=== PATIENT | female | born 1975 | race Caucasian/White ===

== ENCOUNTER 2021-06-22 09:10 | Emergency (ER) | payer OTHER, SELFPAY ==
[2021-06-22] VITALS (8 sets, daily range): BP systolic 114–155; BP diastolic 60–86; PULSE 71–85; RESP 18–20; TEMP 36.9; O2SAT 98–100; BMI 23.6
[2021-06-22 09:48] LABS: Appearance Urine UA SL CLOUDY; Bilirubin Urine UA NEGATIVE (NEGATIVE); Color Urine UA YELLOW; Glucose Urine UA NEGATIVE (Negative); Ketones Urine UA NEGATIVE (NEGATIVE); Leukocyte Esterase Urine UA NEGATIVE (NEGATIVE); Nitrite Urine UA NEGATIVE (Negative); Occult Blood Urine UA 3+ (Negative); Protein Urine UA NEGATIVE (Negative); Specific Gravity Urine UA 1.015 (1.000-1.035); Urobilinogen Urine UA 0.2 E.U./dL (0.2)
--- NOTE | 2021-06-22 09:56 | ED_ITS ---
HPI - Female Genitourinary General Chief complaint: Vaginal Bleeding Stated complaint: Heavy period x13 days got lightheaded Time Seen by Provider: 06/22/21 09:49 Source: patient Mode of arrival: Ambulatory Limitations: no limitations History of Present Illness HPI Narrative: Patient here with boyfriend. Complains of painless vaginal bleeding for the past 13 days. Has had blood clots. No abdominal pain pelvic pain. Past 2 days has had intermittent lightheadedness. No syncope. She did have nausea a couple months ago that resolved. LMP 2 months ago. Took home test and negative. Last 6 years ago. Is not on any blood thinners. No new medications. No new stressors in life. No family history of uterine or ovarian cancer. Related Data Previous Rx's Medication Instructions Recorded medroxyprogesterone 10 mg tablet 10 mg PO DAILY #14 tab 06/22/21 (Provera) naproxen 500 mg tablet 500 mg PO BID #20 tab 06/22/21 Allergies Allergy/AdvReac Type Severity Reaction Status Date / Time No Known Drug Allergies Allergy Unverified 01/18/21 11:06 Review of Systems Review of Systems Narrative: GENERAL: Denies chills, fatigue, malaise, fever, sweats. HEENT: Denies sinus pain, ear pain, sore throat RESPIRATORY: Denies dyspnea, cough CARDIOVASCULAR: Denies chest pain, palpitations GASTROINTESTINAL: Denies nausea, vomiting, abdominal pain : Denies dysuria, frequency, hematuria, positive vaginal bleeding MUSCULOSKELETAL: denies muscle or bony pain SKIN: Denies rash, skin lesions NEUROLOGIC: Denies weakness, numbness, positive lightheaded ROS Unobtainable: All systems reviewed & are unremarkable except as noted in HPI and below Patient History Medical History No significant past medical history Surgical History No pertinent past surgical history Substance Use Type: does not use Exam Narrative Exam Narrative: GENERAL: in no distress, not toxic not dyspneic HEAD: Normocephalic. EYES: Pupils equal round No scleral icterus. [place] conjunctivae CARDIOVASCULAR: Regular rate and rhythm without murmurs RESPIRATORY: Clear to auscultation. Breath sounds equal bilaterally. No wheezes, rales, or rhonchi. 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 Normal external exam. Small amount of dark blood in vaginal vault. No adnexal tenderness or uterine tenderness BACK: No flank tenderness. NEURO: AOx4. SKIN: Warm and dry PSYCH: Not anxious, is cooperative Initial Vital Signs Initial Vital Signs: Vital Signs Pulse Rate 83 06/22/21 09:22 Pulse Oximetry 100 06/22/21 09:22 Course Course Course Narrative: No new issues during course of stay. Orders Ordered: ED Orders 06/22/21 09:42 Urinalysis and Microscopic Stat 06/22/21 09:45 CBC Auto Diff [Complete Blood Count AUTO DIFF] Stat CMP [Comprehensive Metabolic Panel] Stat 06/22/21 09:49 Test Urine Stat Reevaluation(s) Reevaluation #1: Reviewed results with patient and boyfriend. Agree with follow-up with OBGYN. Return precautions reviewed with him. Time: 10:34 Consultations Consultation #1: Spoke with last remodeler repairer, Dr. Watkins, start Provera 10 mg daily for 2 weeks. She will see patient in the office. Office will contact patient Time: 10:38 Vital Signs Vital signs: Vital Signs - 8 hr 06/22/21 09:22 06/22/21 09:23 06/22/21 09:24 Temperature 98.4 F Pulse Rate 83 85 82 Pulse Rate [Orthostatic Lying] Pulse Rate [Orthostatic Sitting] Pulse Rate [Orthostatic Standing] Respiratory Rate 18 Blood Pressure 155/68 H 155/68 H Blood Pressure [Orthostatic Lying] Blood Pressure [Orthostatic Sitting] Blood Pressure [Orthostatic Standing] Pulse Oximetry 100 99 99 06/22/21 09:30 06/22/21 09:35 06/22/21 09:38 Temperature Pulse Rate 74 79 Pulse Rate [Orthostatic Lying] 75 Pulse Rate [Orthostatic Sitting] 71 Pulse Rate [Orthostatic Standing] 74 Respiratory Rate Blood Pressure 116/61 116/60 Blood Pressure [Orthostatic Lying] 155/68 H Blood Pressure [Orthostatic Sitting] 136/61 Blood Pressure [Orthostatic Standing] 116/60 Pulse Oximetry 98 98 06/22/21 10:00 06/22/21 10:48 Temperature Pulse Rate 74 72 Pulse Rate [Orthostatic Lying] Pulse Rate [Orthostatic Sitting] Pulse Rate [Orthostatic Standing] Respiratory Rate 20 Blood Pressure 114/60 125/86 Blood Pressure [Orthostatic Lying] Blood Pressure [Orthostatic Sitting] Blood Pressure [Orthostatic Standing] Pulse Oximetry 98 99 MDM - Female Genitourinary Differential Diagnosis Differential diagnosis: Likely dysmenorrhea and other (Dysfunctional uterine bleeding) Lab Data Result diagrams: 06/22/21 09:45 06/22/21 09:45 Labs: Lab Results 06/22/21 06/22/21 06/22/21 Range/Units 09:42 09:45 09:45 WBC 4.7 (4.5-11.0) X10^3/uL RBC 3.73 L (4.0-5.2) X10^6/uL Hgb 11.3 L (12.0-16.0) g/dL Hct 33.1 L (36-46) % MCV 88.6 (80-100) fL MCH 30.4 (26-34) PG MCHC 34.3 (30-36) % RDW 13.9 (11.6-14.8) % Plt Count 246 (150-400) X10^3/uL Neut % (Auto) 57.6 (50-75) % Lymph % (Auto) 34.4 (25-40) % [place] % (Auto) 6.0 (3-14) % Eos % (Auto) 1.2 L (2-4) % Baso % (Auto) 0.8 (0-2) % Neut # (Auto) 2700 (3863-5464) /uL Lymph # (Auto) 1600 (2488-6142) /uL [place] # (Auto) 300 (0-900) /uL Eos # (Auto) 100 (0-450) /uL Baso # (Auto) 0 (0-100) /uL Sodium 138 (137-145) mmol/L Potassium 3.9 (3.4-5.1) mmol/L Chloride 106 (98-107) mmol/L Carbon Dioxide 25 (22-32) mmol/L BUN 15 (7-17) mg/dL Creatinine 0.73 (0.52-1.04) mg/dL Estimated GFR > 60.0 (>60) mL/min BUN/Creatinine Ratio 20.5 (6-22) Glucose 95 (70-100) mg/dL Calcium 9.8 (8.4-10.2) mg/dL Total Bilirubin 0.3 (0.2-1.3) mg/dL AST 33 (14-36) IU/L ALT 34 (<35) IU/L Alkaline Phosphatase 57 (38-126) U/L Total Protein 7.2 (6.3-8.2) g/dL Albumin 4.6 (3.5-5.0) g/dL Globulin 2.6 (1.7-4.1) g/dL Albumin/Globulin Ratio 1.8 (1.0-2.8) Urine Color Yellow Urine Appearance Sl cloudy Urine pH 5.5 (4.5-8.0) Ur Specific Rew 1.015 (1.000-1.035) Urine Protein Negative (Negative) Urine Glucose (UA) Negative (Negative) g/dL Urine Ketones Negative (NEGATIVE) Urine Occult Blood 3+ H (Negative) Urine Nitrate Negative (Negative) Urine Bilirubin Negative (NEGATIVE) Urine Urobilinogen 0.2 (0.2) E.U./dL Ur Leukocyte Esterase Negative (NEGATIVE) Urine RBC >100/hpf H (0-5/HPF) Urine WBC 1-5/hpf (0-5/HPF) Ur Squamous Epith Cells 1-5 /hpf (0-5/HPF) Urine Bacteria Few (2-10) H (None) Ur Culture Indicated? Cult not indicated Urine Test (Negative) 06/22/21 Range/Units 09:49 WBC (4.5-11.0) X10^3/uL RBC (4.0-5.2) X10^6/uL Hgb (12.0-16.0) g/dL Hct (36-46) % MCV (80-100) fL MCH (26-34) PG MCHC (30-36) % RDW (11.6-14.8) % Plt Count (150-400) X10^3/uL Neut % (Auto) (50-75) % Lymph % (Auto) (25-40) % [place] % (Auto) (3-14) % Eos % (Auto) (2-4) % Baso % (Auto) (0-2) % Neut # (Auto) (1861-0573) /uL Lymph # (Auto) (7940-0097) /uL [place] # (Auto) (0-900) /uL Eos # (Auto) (0-450) /uL Baso # (Auto) (0-100) /uL Sodium (137-145) mmol/L Potassium (3.4-5.1) mmol/L Chloride (98-107) mmol/L Carbon Dioxide (22-32) mmol/L BUN (7-17) mg/dL Creatinine (0.52-1.04) mg/dL Estimated GFR (>60) mL/min BUN/Creatinine Ratio (6-22) Glucose (70-100) mg/dL Calcium (8.4-10.2) mg/dL Total Bilirubin (0.2-1.3) mg/dL AST (14-36) IU/L ALT (<35) IU/L Alkaline Phosphatase (38-126) U/L Total Protein (6.3-8.2) g/dL Albumin (3.5-5.0) g/dL Globulin (1.7-4.1) g/dL Albumin/Globulin Ratio (1.0-2.8) Urine Color Urine Appearance Urine pH (4.5-8.0) Ur Specific Rew (1.000-1.035) Urine Protein (Negative) Urine Glucose (UA) (Negative) g/dL Urine Ketones (NEGATIVE) Urine Occult Blood (Negative) Urine Nitrate (Negative) Urine Bilirubin (NEGATIVE) Urine Urobilinogen (0.2) E.U./dL Ur Leukocyte Esterase (NEGATIVE) Urine RBC (0-5/HPF) Urine WBC (0-5/HPF) Ur Squamous Epith Cells (0-5/HPF) Urine Bacteria (None) Ur Culture Indicated? Urine Test Negative (Negative) MDM Narrative Medical decision making narrative: Upper for discharge home. Patient not toxic. No hypotension or tachycardia. Return precautions reviewed with her. No imaging indicated this time. Discharge Plan Departure Patient Disposition: Home Clinical Impression: Dysfunctional uterine bleeding Instructions: DI for Abnormal Uterine Bleeding Activity Restrictions/Additional Instructions: Call provided OBGYN office, Dr. Watkins today to arrange office appointment. Call provided primary care referral line to obtain family doctor for continuation of your migraine medications. Return if worsening questions or concerns. Return if any dizziness or passing out. Prescriptions: New medroxyprogesterone [Provera] 10 mg tablet 10 mg PO DAILY Qty: 14 0RF naproxen 500 mg tablet 500 mg PO BID Qty: 20 0RF Referrals: [facility] [Outside] China Watkins MD [Physician] - Miscellaneous,MD Gael [Primary Care Provider] -
[2021-06-22 10:08] LABS: Add Manual Diff / Slide Review NO; Basophils Absolute Auto 0 /uL (0-100); Basophils Percent Auto 0.8 % (0-2); Eosinophils Absolute Auto 100 /uL (0-450); Eosinophils Percent Auto 1.2 % (2-4); Hematocrit 33.1 % (36-46); Hemoglobin 11.3 g/dL (12.0-16.0); Lymphocytes Absolute Auto 1600 /uL (1100-4500); Lymphocytes Percent Auto 34.4 % (25-40); Mean Corpuscular HGB Conc 34.3 % (30-36); Mean Corpuscular Hemoglobin 30.4 PG (26-34); Mean Corpuscular Volume 88.6 fL (80-100); Monocytes Absolute Auto 300 /uL (0-900); Neutrophils Absolute Auto 2700 /uL (1500-7000); Neutrophils Percent Auto 57.6 % (50-75); Platelet Count 246 X10^3/uL (150-400); Red Blood Cell Count 3.73 X10^6/uL (4.0-5.2); Red Cell Distribution Width 13.9 % (11.6-14.8); White Blood Cell Count 4.7 X10^3/uL (4.5-11.0)
[2021-06-22 10:11] LABS: pH Urine UA 5.5 (4.5-8.0)
[2021-06-22 10:12] LABS: Bacteria Urine Few (2-10); Culture Indicated Urine Cult Not Indicated; RBC Urine >100/HPF (0-5/HPF); Squamous Epithelial Cell Urine 1-5 /HPF (0-5/HPF); WBC Urine 1-5/HPF (0-5/HPF)
[2021-06-22 10:13] LABS: Pregnancy Test Urine Negative (Negative)
[2021-06-22 10:19] LABS: Alanine Aminotransferase 34 IU/L (<35); Albumin 4.6 g/dL (3.5-5.0); Albumin Globulin Ratio 1.8 (1.0-2.8); Alkaline Phosphatase 57 U/L (38-126); Aspartate Aminotransferase 33 IU/L (14-36); BUN Creatinine Ratio 20.5 (6-22); Bilirubin Total 0.3 mg/dL (0.2-1.3); Blood Urea Nitrogen 15 mg/dL (7-17); Calcium 9.8 mg/dL (8.4-10.2); Carbon Dioxide 25 mmol/L (22-32); Chloride 106 mmol/L (98-107); Estimated Glomerular Filt Rate > 60.0 mL/min (>60); Globulin 2.6 g/dL (1.7-4.1); Glucose 95 mg/dL (70-100); HEMOLYSIS < 15 (0-50); Potassium 3.9 mmol/L (3.4-5.1); Sodium 138 mmol/L (137-145); Total Protein 7.2 g/dL (6.3-8.2)
== END 2021-06-22 10:49 | disposition home or self-care (01) ==
PROVIDERS: Emergency Provider Emergency Medicine
DX: N93.8 Other specified abnormal uterine and vaginal bleeding (principal)
CPT/HCPCS: 80053; 81001; 81025; 85025; 99281; 99283

== ENCOUNTER → 2021-07-06 09:28 | Outpatient (CLI) | payer OTHER, SELFPAY ==
--- NOTE | 2021-07-06 09:29 | DI.US.S_ITS ---
PROCEDURE: US PELVIC COMPLETE INDICATIONS: F/U DUB TECHNIQUE: Real-time scanning was performed of the pelvic organs, with image documentation. Additional endovaginal scanning was necessary due to incomplete visualization of the adnexal and endometrial structures by transabdominal scanning. COMPARISON: None. FINDINGS: Uterus: Uterus is anteverted and mildly prominent in size at 11.4 x 6 x 6.5 cm. The myometrium is homogeneous. The endometrial stripe is thickened at 21.3 mm. The endometrial stripe is heterogeneous, with mild vascularity. No laura focal polyp or mass can be seen, however. Ovaries: The right ovary measures 3.2 x 2.9 x 3.4 cm and demonstrates a 3.5 cm simple appearing cyst. The left ovary measures 2.7 x 2.1 x 2 cm and demonstrates a 2 cm simple appearing cystic follicle. The ovaries have a normal sonographic appearance. No adnexal masses are seen. Other: No pathologic free abdominal or pelvic fluid. IMPRESSION: The endometrial stripe is abnormally thickened and heterogeneous, with mild vascularity seen along it. If it would be clinically appropriate, a followup pelvic ultrasound could be considered in 6 weeks to assure resolution/ improvement. Bilateral simple appearing ovarian cysts are seen, with the largest seen on the right measuring 3.5 cm. These can be reassessed on the follow-up ultrasound. We strive to produce accurate, complete, and clear reports of imaging services. To assist us in improving patient care, this report was composed using standard report templates and voice recognition software. Therefore, it may contain abnormal punctuation, insertions and/or omissions. Occasional wrong-word or sound-alike substitutions may occur. Though we review the report and make efforts to correct it, we do recommend that the report be read carefully in proper context to recognize any text inaccuracies. Dictated by: Marko Nash M.D. on 07/06/2021 at 10:05 Approved by: Marko Nash M.D. on 07/06/2021 at 10:08
== END ==
PROVIDERS: Referring Provider Specialist; Visit Provider Specialist
DX: N93.8 Other specified abnormal uterine and vaginal bleeding (principal); R93.89 Abnormal findings on diagnostic imaging of other specified body structures; N83.291 Other ovarian cyst, right side
CPT/HCPCS: 76830; 76856

== ENCOUNTER → 2023-06-06 17:26 | Outpatient (CLI) | payer OTHER, MEDICAID, SELFPAY ==
[2023-06-06 22:14] LABS: Pregnancy Test Urine Negative (Negative)
== END ==
PROVIDERS: Visit Provider Student in an Organized Health Care Education/Training Program
DX: R30.0 Dysuria (principal)
CPT/HCPCS: 81025; 87077; 87086; 87147

== ENCOUNTER → 2023-08-20 15:39 | Outpatient (CLI) | payer OTHER, MEDICAID, SELFPAY | PROVIDERS: Visit Provider Physician Assistant | DX: R30.0 Dysuria (principal) | CPT/HCPCS: 87077; 87086; 87147 ==